=== PATIENT | female | born 1955 | race Caucasian/White ===

== ENCOUNTER → 2023-10-13 09:22 | Outpatient (REF) | payer BC, SELFPAY | LOC: HWRAD 09:22 | PROVIDERS: ATTENDING PHYSICIAN Nurse Practitioner Family | DX: R05.8 Other specified cough (principal) | CPT/HCPCS: 71046 ==

== ENCOUNTER 2023-10-23 12:12 | Emergency (ER) | payer BC, SELFPAY ==
[2023-10-23 12:19] VITALS: BP 151/86
--- NOTE | 2023-10-23 13:15 | ED.GENMED ---
History of Present Illness
General
Chief Complaint: Fall
Source: patient
Exam Limitations: none
Time Seen by Provider: 10/23/23 12:53
Nursing documentation reviewed up to this point in time: agreed with
Travel History
Have you had any contact with someone who has COVID-19?: No
Do you have any symptoms of coronavirus? Fever > 100 degrees, chills, cough, shortness of breath, sore throat, loss of taste or smell, muscle aches, or headache?: No
History of Present Illness
History of Present Illness:
68-year-old female with past medical history of seizure disorder presenting to the emergency department with right shoulder discomfort after falling over her dog landing directly on her right shoulder denies any head trauma loss consciousness, neck
pain, numbness weakness or additional concerns. Does have increased discomfort movement of the shoulder denies any deformity denies numbness or weakness.
Past History
Past History
ED Past Medical History: Seizures
Social History
Tobacco: Non-smoker
Alcohol: None
Drug: None
Personal:
Living: with family
Review of Systems
Review of Systems
Allergies reviewed?: Yes
All Other Systems: ROS reviewed and negative except as documented in HPI and ROS
Phy Exam
Physical Exam
Physical Exam:
GENERAL: Alert , in no apparent distress
EYE: pupils equal and reactive
NECK: Supple, no significant adenopathy.
ENT: o/p clr, mmm.
CARDIAC: Regular rate and rhythm .
LUNGS: Clear breath sounds bilaterally, no acute respiratory distress, no wheezes/rales/rhonchi
ABDOMEN: Soft, without focal tenderness, no r/g, no cvat
NEUROLOGICAL: Alert and oriented, no focal neuro deficits
SKIN: Warm and dry, skin intact.
MUSCULOSKELETAL: Mild tenderness to the right anterior shoulder with some mild swelling to the area able to range at the shoulder but does have discomfort when doing so. No tenderness to the clavicle humerus elbow forearm or wrist. No edema, well
perfused.
PSYCH: Normal and appropriate interaction.
Course
Orders/Labs/Results
Orders:
Orders
10/23/23 12:21
Shoulder, Right, Trauma [CR Shoulder, Trauma - Right] Urgent
Comment:
Reason For Exam: fell on right shoulder
Vital Signs
Initial and Last Documented VS:
Initial Vital Signs
Temp Pulse Resp BP Pulse Ox
98.5 F 80 16 151/86 98
10/23/23 12:19 10/23/23 12:19 10/23/23 12:19 10/23/23 12:19 10/23/23 12:19
Last Documented Vital Signs
Temp Pulse Resp BP Pulse Ox
98.5 F 80 16 151/86 98
10/23/23 12:19 10/23/23 12:19 10/23/23 12:19 10/23/23 12:19 10/23/23 12:19
MDM/Problems Addressed
MDM/Problems Addressed:
68-year-old female presenting to the emergency department after tripping over her dog landing directly on her right shoulder. Here she has tenderness to palpation to the anterior portion of the deltoid region no numbness or weakness no additional
injuries did not hit her head no neck pain x-ray without signs of fracture patient with likely sprain to the area plan for conservative treatment over the next few days and follow-up as needed. Return precautions given.
*Critical Care Note
Total Time (30-74mins, 75-104mins- exclusive of procedures): Not Applicable
ED Attending Note
-
Portions of this chart may have been created with voice recognition software.� Occasional wrong word or��sound alike� substitutions may have occurred due to the inherent limitations of voice recognition software.
Discharge Plan
Departure
Patient Disposition: Home (Routine Discharge)
Date of Disposition: 10/23/23
Time of Disposition: 14:12
Patient with high blood pressure during this ER visit?: No
Condition: Good
Covid-19: Not Applicable
Discharge Problem:
Sprain of right shoulder
Instructions: Shoulder Pain ED
Referrals:
Allen Aguilera MD [Active] - Follow up in 5-7 days
Lexy Scruggs CRNP [Family Provider] -
Activity Restrictions/Additional Instructions:
You came to the emergency department today with concerns of shoulder discomfort. Here you had an x-ray without signs of fracture. This is likely a sprain. Please rest ice and engage in light activity increasing over the next week or 2 as symptoms
will hopefully be improving. Please follow closely with orthopedics for any ongoing issues.
Interventions
Interventions:
*ED COVID-19 Vaccine History Last Done: 10/23/23 12:19
== END 2023-10-23 14:38 | disposition home or self-care (01) ==
LOC: EMR 12:12
PROVIDERS: EMERGENCY PHYSICIAN Emergency Medicine; FAMILY PHYSICIAN Nurse Practitioner Family
DX: S43.401A Unspecified sprain of right shoulder joint, initial encounter (principal); W18.09XA Striking against other object with subsequent fall, initial encounter; R56.9 Unspecified convulsions; E78.5 Hyperlipidemia, unspecified; Z88.8 Allergy status to other drugs, medicaments and biological substances
CPT/HCPCS: 99283; 73030

== ENCOUNTER → 2024-01-24 09:06 | Outpatient (REF) | payer BC, SELFPAY | LOC: RCS 09:06 | PROVIDERS: ATTENDING PHYSICIAN Psychiatry & Neurology Neurology; FAMILY PHYSICIAN Nurse Practitioner Family | DX: G40.309 Generalized idiopathic epilepsy and epileptic syndromes, not intractable, without status epilepticus (principal) | CPT/HCPCS: 95700; 95714 ==

== ENCOUNTER → 2024-02-08 09:23 | Outpatient (REF) | payer BC, SELFPAY | LOC: HWRAD 09:23 | PROVIDERS: ATTENDING PHYSICIAN Otolaryngology; FAMILY PHYSICIAN Nurse Practitioner Family | DX: J32.4 Chronic pansinusitis (principal) | CPT/HCPCS: 70486 ==

== ENCOUNTER → 2024-06-23 07:06 | Outpatient (REF) | payer BC, SELFPAY | LOC: WDC 07:06 | PROVIDERS: ATTENDING PHYSICIAN Nurse Practitioner Family | DX: Z12.31 Encounter for screening mammogram for malignant neoplasm of breast (principal) | CPT/HCPCS: 77063; 77067 ==

== ENCOUNTER → 2024-10-04 10:18 | Outpatient (REF) | payer BC, SELFPAY | LOC: HWRCS 10:18 | PROVIDERS: ATTENDING PHYSICIAN Internal Medicine Cardiovascular Disease; FAMILY PHYSICIAN Nurse Practitioner Family | DX: I35.0 Nonrheumatic aortic (valve) stenosis (principal) | CPT/HCPCS: 93306 ==

== ENCOUNTER → 2025-03-25 08:30 | Outpatient (REF) | payer MEDICARE, SELFPAY | LOC: HWRCS 08:30 | PROVIDERS: ATTENDING PHYSICIAN Internal Medicine Cardiovascular Disease; FAMILY PHYSICIAN Nurse Practitioner Family | DX: I35.0 Nonrheumatic aortic (valve) stenosis (principal) | CPT/HCPCS: 93306 ==